=== PATIENT | female | born 1965 | race Caucasian/White ===

== ENCOUNTER 2017-05-25 13:15 | Emergency (ER) | payer MEDICARE ==
[2017-05-25 15:06] LABS: BASOPHILS 0.3 % (0-2); EOSINOPHILS 0.2 % (0-7); HEMATOCRIT 40.4 % (36.0-48.0); HEMOGLOBIN 12.8 g/dL (12-16); IMMATURE GRANULOCYTES 0.3 % (0-5); LYMPHOCYTES 13.6 % (15-50); MCH 28.5 pg (26.0-34.0); MCHC 31.7 g/dL (31.0-37.0); MEAN PLATELET VOLUME 9.1 fL (7.4-10.4); MONOCYTES 5.2 % (2-11); NEUTROPHILS 80.4 % (40-80); PLATELET COUNT 366 10x3/uL (130-400); RBC 4.49 10x6/uL (4.00-5.40); RDW 13.8 % (11.5-14.5); WBC 10.1 10x3/uL (4.8-10.8)
[2017-05-25 15:19] LABS: ALBUMIN 3.7 g/dL (3.4-5.0); ANION GAP 15.9 mmol/L (8-16); BILIRUBIN - TOTAL 0.52 mg/dL (0.2-1.3); CALCIUM 8.9 mg/dL (8.5-10.1); CARBON DIOXIDE 22.9 mmol/L (21.0-32.0); CREATININE - SERUM 1.1 mg/dL (0.6-1.3); POTASSIUM - SERUM 3.8 mmol/L (3.5-5.1); PROTEIN - SERUM 8.1 g/dL (6.4-8.2)
[2017-05-25 15:28] LABS: THYROID STIMULATING HORMONE 0.95 uIU/mL (0.36-3.74)
[2017-05-25 17:57] LABS: UDS - AMPHET NEGATIVE QUAL (NEGATIVE); UDS - BARB NEGATIVE QUAL (NEGATIVE); UDS - BENZO NEGATIVE QUAL (NEGATIVE); UDS - COCAINE NEGATIVE QUAL (NEGATIVE); UDS - OPIATE NEGATIVE QUAL (NEGATIVE); UDS - PCP NEGATIVE QUAL (NEGATIVE); UDS - THC NEGATIVE QUAL (NEGATIVE)
[2017-05-25 17:59] LABS: APPEARANCE SLT CLOUDY (CLEAR); COLOR YELLOW (YELLOW); NITRITE NEGATIVE (NEGATIVE)
[2017-05-25 18:00] LABS: BILIRUBIN NEGATIVE (NEGATIVE); GLUCOSE NEGATIVE (NEGATIVE); KETONE LARGE mg/dL (NEGATIVE); PROTEIN TRACE mg/dL (NEGATIVE); UROBILINOGEN NORMAL (NORMAL)
[2017-05-25 18:02] LABS: BACTERIA FEW /hpf (NONE SEEN); MUCUS <1+ /lpf (NONE SEEN); RED CELLS - URINE 0-5 /hpf (0-5)
== END 2017-05-25 20:44 | disposition short-term general hospital (02) ==
LOC: D.ER 13:15 → EDBD 13:15 → D.ER 20:44
PROVIDERS: Emergency Medicine
DX: F60.6 Avoidant personality disorder (principal); J44.9 Chronic obstructive pulmonary disease, unspecified

== ENCOUNTER 2017-10-19 08:06 | Emergency (ER) | payer MEDICARE | END 2017-10-19 08:17 | disposition home or self-care (01) | LOC: D.ER 08:06 | DX: R42 Dizziness and giddiness (principal); L03.116 Cellulitis of left lower limb ==

== ENCOUNTER 2017-10-20 09:30 | Emergency (ER) | payer MEDICARE ==
[2017-10-20 10:01] LABS: BASOPHILS 0.1 % (0-2); EOSINOPHILS 1.2 % (0-7); HEMATOCRIT 34.7 % (36.0-48.0); HEMOGLOBIN 11.2 g/dL (12-16); IMMATURE GRANULOCYTES 0.3 % (0-5); LYMPHOCYTES 3.4 % (15-50); MCH 28.7 pg (26.0-34.0); MCHC 32.3 g/dL (31.0-37.0); MEAN PLATELET VOLUME 9.6 fL (7.4-10.4); MONOCYTES 3.6 % (2-11); NEUTROPHILS 91.4 % (40-80); RDW 14.3 % (11.5-14.5); WBC 13.7 10x3/uL (4.8-10.8)
[2017-10-20 10:02] LABS: PLATELET COUNT 286 10x3/uL (130-400)
[2017-10-20 10:22] LABS: ALBUMIN 3.5 g/dL (3.4-5.0); ALKALINE PHOSPHATASE 74 U/L (46-116); ALT (SGPT) 15 U/L (10-68); BILIRUBIN - TOTAL 0.68 mg/dL (0.2-1.3); CALC OSMOLALITY 276 mosm/kg (275-300); CALCIUM 8.7 mg/dL (8.5-10.1); CARBON DIOXIDE 24.1 mmol/L (21.0-32.0); CHLORIDE - SERUM 100 mmol/L (98-107); CREATININE - SERUM 1.2 mg/dL (0.6-1.3); GLUCOSE 178 mg/dL (74-106); POTASSIUM - SERUM 3.7 mmol/L (3.5-5.1); PROTEIN - SERUM 7.4 g/dL (6.4-8.2); SODIUM 136 mmol/L (136-145); UREA NITROGEN 14 mg/dL (7-18); eGFR NON AFRICAN AMERICAN 50 mL/min (90-120)
[2017-10-20 10:32] LABS: CKMB 0.8 U/L (0.0-3.6); CREATINE KINASE 127 UL (21-215)
[2017-10-20 10:33] LABS: TROPONIN-I < 0.017 ng/mL (0.000-0.060)
== END 2017-10-20 12:46 | disposition home or self-care (01) ==
LOC: D.ER 09:30
PROVIDERS: Family Medicine
DX: R42 Dizziness and giddiness (principal); L03.90 Cellulitis, unspecified; J44.9 Chronic obstructive pulmonary disease, unspecified

== ENCOUNTER 2017-10-27 12:30 | Emergency (ER) | payer MEDICARE ==
[2017-10-27 13:50] LABS: APPEARANCE CLEAR (CLEAR); BILIRUBIN NEGATIVE (NEGATIVE); COLOR YELLOW (YELLOW); GLUCOSE NEGATIVE (NEGATIVE); KETONE LARGE mg/dL (NEGATIVE); NITRITE NEGATIVE (NEGATIVE); PROTEIN TRACE mg/dL (NEGATIVE); SPECIFIC GRAVITY 1.025 (1.005-1.020); UROBILINOGEN NORMAL (NORMAL)
[2017-10-27 13:51] LABS: WHITE CELLS - URINE 0-5 /hpf (0-5)
[2017-10-27 13:53] LABS: BACTERIA MODERATE /hpf (NONE SEEN); EPITHELIAL CELLS 0-5 /hpf (0-5); GRANULAR CAST 0-5 /lpf (NONE SEEN); MUCUS <1+ /lpf (NONE SEEN); RED CELLS - URINE OCC /hpf (0-5)
[2017-10-27 13:54] LABS: CALCIUM OXALATE CRYSTALS RARE /hpf (NONE SEEN)
[2017-10-27 13:55] LABS: BASOPHILS 0.3 % (0-2); EOSINOPHILS 1.5 % (0-7); HEMATOCRIT 33.6 % (36.0-48.0); HEMOGLOBIN 10.9 g/dL (12-16); IMMATURE GRANULOCYTES 0.3 % (0-5); MCH 28.6 pg (26.0-34.0); MCHC 32.4 g/dL (31.0-37.0); MCV 88.2 fL (80.0-100.0); MEAN PLATELET VOLUME 8.9 fL (7.4-10.4); MONOCYTES 5.9 % (2-11); PLATELET COUNT 320 10x3/uL (130-400); RBC 3.81 10x6/uL (4.00-5.40); WBC 7.5 10x3/uL (4.8-10.8)
[2017-10-27 13:58] LABS: UDS - AMPHET NEGATIVE QUAL (NEGATIVE); UDS - BARB NEGATIVE QUAL (NEGATIVE); UDS - BENZO NEGATIVE QUAL (NEGATIVE); UDS - COCAINE NEGATIVE QUAL (NEGATIVE); UDS - OPIATE NEGATIVE QUAL (NEGATIVE); UDS - PCP NEGATIVE QUAL (NEGATIVE); UDS - THC NEGATIVE QUAL (NEGATIVE)
[2017-10-27 14:15] LABS: ALBUMIN 3.4 g/dL (3.4-5.0); ANION GAP 12.7 mmol/L (8-16); BILIRUBIN - TOTAL 0.45 mg/dL (0.2-1.3); CALCIUM 8.8 mg/dL (8.5-10.1); CARBON DIOXIDE 26.7 mmol/L (21.0-32.0); POTASSIUM - SERUM 3.4 mmol/L (3.5-5.1); PROTEIN - SERUM 7.4 g/dL (6.4-8.2)
== END 2017-10-27 19:49 | disposition home or self-care (01) ==
LOC: D.ER 12:30
PROVIDERS: Emergency Medicine
DX: Z09 Encounter for follow-up examination after completed treatment for conditions other than malignant neoplasm (principal); J44.9 Chronic obstructive pulmonary disease, unspecified